=== PATIENT | male | born 1975 | race Caucasian/White ===

== ENCOUNTER 2022-07-09 14:32 | Emergency (ER) | payer BC ==
[2022-07-09 15:39] VITALS: RESP 18; BMI 34.0
[2022-07-09 21:42] VITALS: BP 142/76; PULSE 99; TEMP 98.6
== END 2022-07-09 21:42 | disposition home or self-care (01) ==
LOC: JER 14:32
DX: R09.89 Other specified symptoms and signs involving the circulatory and respiratory systems (principal)
CPT/HCPCS: 70360-TC-FY; 70490-TC; 93005; 93010; 99284-25